=== PATIENT | male | born 1950 | race Caucasian/White ===

== ENCOUNTER → 2020-12-09 | Outpatient (CLI) | payer OTHER, MEDICARE ==
[2015-08-25 12:00] VITALS: BP 144/78
[~2020-12-09] MED LIST: OXYC1TAB7 PO; no home medications
== END ==
LOC: LAB 10:00
PROVIDERS: ATTEND Nurse Anesthetist, Certified Registered
DX: Z01.812 Encounter for preprocedural laboratory examination (principal); K42.9 Umbilical hernia without obstruction or gangrene; Z20.822 Contact with and (suspected) exposure to COVID-19
CPT/HCPCS: U0003

== ENCOUNTER → 2020-12-13 | Day surgery (SDC) | payer OTHER, MEDICARE ==
[~2020-12-13] MED LIST changes: +ACETAMINOPHEN 500 MG TABLET PO ONE; +BUPIVACAINE-EPI 0.25%-1:200000 MPF 30 ML VIAL. ONE; +DEXAMETHASONE SOD PHOS 20 MG/5 ML VIAL. ONE; +GLYCOPYRROLATE 1 MG/5 ML VIAL. ONE; +IPRATRPIUM/ALBUTEROL 0.5/2.5MG 3 ML NEBU. NEB PRN; +IV RINGERS SOLUTION,LACTATED 1,000 ML IV SCH; +KETOROLAC 30 MG/ML VIAL. ONE; +MIDAZOLAM HCL PF 2 MG/2 ML VIAL. IV ONE; +MIDAZOLAM HCL PF 2 MG/2 ML VIAL. ONE; +NEOSTIGMINE 10 MG/10 ML VIAL. ONE; +ONDANSETRON PF 4 MG/2 ML VIAL. IV PRN; +ONDANSETRON PF 4 MG/2 ML VIAL. ONE; +PROPOFOL 10,000 MCG/ML (20ML) VIAL IV ONE; +ROCURONIUM 50 MG/5 ML VIAL. ONE; +SEVOFLURANE 61 TO 120 MINUTES. IH ONE; +SUCCINYLCHOLINE 200 MG/10 ML VIAL. ONE
--- NOTE | 2020-12-13 09:00 | PDOC4 ---
Operative Report DATE December 132020 at 857 Preop Diagnosis Umbilical hernia and right flank mass Post-op Diagnosis Same Operation Performed Repair of umbilical hernia and excision of right flank mass. Patient is 70-year-old gentleman with complaints of a subcutaneous right flank mass and a umbilical hernia. Procedure of excision of mass and a repair of umbilical hernia was explained to the patient detail risk benefits were also discussed including bleeding infection, alternatives to this procedure also discussed with patient who seemed to understand and gave both verbal and written consent to have the procedure performed. Patient was taken to the operating room placed the supine position general anesthesia was initiated once patient was asleep and intubated he was rolled to his left side with a bump under his right hip allowing access to the right flank for excision of the mass. The area was prepped and draped in usual sterile fashion using ChloraPrep. Area over the mass was injected with quarter percent Marcaine with epinephrine incision was made with 15 blade scalpel is carried down through the subcutaneous tissue using electrocautery right hemostasis the lipomatous appearing mass was excised sharply with electrocautery. Mass size was about 3 cm incision size was 5 cm in length wound was then closed in 2 layers deep layer running 3-0 Vicryl and the skin was reapproximated for subcuticular Monocryl Mastisol Steri-Strips and island dressings were applied. Patient was then repositioned in the supine positioning and his abdomen was prepped and draped usual sterile fashion using ChloraPrep. Area around the umbilicus was injected with quarter percent Marcaine with epinephrine incision was made just above the umbilicus with a 15 blade scalpel is carried down through subcutaneous tissue using electrocautery right hemostasis down to the hernia sac and contents which were excised and sent for pathology. The hernia defect and fascia was closed with a [id number] 0 Vicryl suture and wound was then closed in 2 layers the deep layer running 3-0 Vicryl and the skin was reapproximated for subcuticular Monocryl Mastisol Steri- Strips and island dressings were applied. Patient was awakened extubated in the operating room taken to recovery in stable condition all sponge instrument needle counts listed as correct estimated blood loss 5 mL Surgeon Ashkan ANESTHESIA PROPOSED: GENERAL Blood Loss 5 mL Specimen Right flank mass 3 cm Umbilical hernia sac and contents Complications None FADI RICHEY MD Dec 13, 2020 09:00
--- NOTE | 2020-12-13 09:02 | DISCH ---
DISCHARGE INSTRUCTIONS-DC Condition on Discharge Condition on Discharge: Stable Activity after Discharge Activity Instructions for Disc: Avoid exertion Diet after Discharge Diet after Discharge: Regular Wound/Incision Care Other wound/incision instructi: Kinjal shower in 24 hours Contacting the DRLatrice after DC Call your doctor for: If your condition worsens Follow-Up Follow up with: Dr. Richey in 2 weeks FADI RICHEY MD Dec 13, 2020 09:02
[2020-12-13 10:00] VITALS: BP 121/64
--- NOTE | 2020-12-16 10:16 | PATHOLOGY ---
[facility] Accession Number: [id number] . 01 Material submitted: . PART A: flank - R FLANK MASS. Modifiers: right PART B: hernia - UMBILICAL HERNIA SAC . 01 Clinical history: . R FLANK MASS, UMBILICAL HERNIA . 02 Diagnosis: A. Segment of fibroadipose tissue, right flank mass excision: - Consistent with lipoma. . B. Segment of mesothelial-lined fibromembranous and attached fibroadipose tissue, umbilical hernia repair: - Hernia sac showing focal mild chronic inflammation. . (JPM:keegan; 12/15/2020) MBR 12/15/2020 1646 Local . 02 Electronically signed: . Bradne Alanis MD, Pathologist NPI- [id number] . 01 Gross description: . A. The specimen is received in formalin, labeled "Edwin Randle, R flank mass" and consists of an irregular segment of yellow lobulated tissue measuring 3.5 x 2.0 x 0.8 cm. Sectioning reveals partially fibrotic yellow pink cut surfaces and retail field representative tissue is submitted in A1. . B. The specimen is received in formalin, labeled "Randle, Edwin, umbilical hernia sac" and consists of a membranous pink segment of tissue partially encapsulating yellow orange lobulated tissue measuring 2.6 x 2.0 x 1.1 cm. Sectioning reveals no gross lesions and a retail field representative section is submitted in B1. (JACKIY; 12/14/2020) SYU/SYU 12/14/2020 1713 Local . 02 Pathologist provided ICD-10: K42.9 . 02 CPT . 172693, 076331 Specimen Comment: A courtesy copy of this report has been sent to [phone] Specimen Comment: Report sent to Performed at: 01 [facility] [address] [facility] [address], [place] [id number] MD Oseas Lincoln MD Phone: [phone] Performed at: 02 [facility] [place] [address] [place], [place] [id number] MD Braden Alanis MD Phone: [phone]
== END | disposition home or self-care (01) ==
LOC: SURG 07:10
PROVIDERS: ATTEND Surgery
DX: D17.1 Benign lipomatous neoplasm of skin and subcutaneous tissue of trunk (principal); K42.9 Umbilical hernia without obstruction or gangrene; R22.2 Localized swelling, mass and lump, trunk; E11.9 Type 2 diabetes mellitus without complications; F17.200 Nicotine dependence, unspecified, uncomplicated; E66.9 Obesity, unspecified; Z83.3 Family history of diabetes mellitus; Z98.890 Other specified postprocedural states; Z87.442 Personal history of urinary calculi; Z79.84 Long term (current) use of oral hypoglycemic drugs; Z88.0 Allergy status to penicillin
CPT/HCPCS: 21931; 49585; 82947; 88302; 88304; J1100; J1885; J1956; J2250; J2405; J2704; J2710; J3010; J3490; J7120